=== PATIENT | male | born 1940 | race Caucasian/White ===

== ENCOUNTER 2020-07-19 12:22 | Emergency (ER) | payer OTHER ==
[2020-07-19] MEDS ORDERED: Acetaminophen/oxyCODONE 325-5 MG Tab ONE (12:38)
[2020-07-19] MEDS: Ketorolac 30 MG/ML SDV IM ONE (12:41)
[2020-07-19] MEDS: Ketorolac 30 MG/ML SDV ONE (12:43)
[2020-07-19 12:48] VITALS: BP 125/93; PULSE 84
--- NOTE | 2020-07-19 15:19 | ER ---
REASON FOR EMERGENCY ROOM VISIT: Left shoulder trauma. HISTORY: This 80-year-old man comes in after having sustained a fall to his left shoulder. This morning, while walking down a fairly steep driveway, he slipped on the ice and fell landing on his left shoulder. He subsequently experienced severe pain in the left shoulder with some modest amount of swelling in that area. He denies any numbness in his hand or tingling. He denies any trauma to any other areas. He did not strike his head or lose consciousness. PAST MEDICAL HISTORY: Reviewed, unremarkable. See EMR. MEDICATIONS: Reviewed. See EMR. PHYSICAL EXAMINATION: GENERAL: He is an alert man, sitting in a wheelchair. EXTREMITIES: His arm is flexed slightly at the elbow. He does have some visible swelling about the left shoulder area with tenderness to any of the attempts at passive range of motion. I cannot palpate any bony crepitus. Distally, his quitline counselor is strong. His neurovascular status is intact. He has no sensory deficits. An excellent capillary refill as well as a radial pulse. IMAGING: X-ray shows he has a displaced comminuted fracture of the anatomic neck of his left humerus. It is described as a comminuted fracture, possibly involving the head of the humerus as well. There is soft tissue swelling. No dislocation was identified. IMPRESSION: Proximal left humerus fracture (see above). PLAN: I contacted the orthopedic surgeon on-call at [facility] in [place], Dr. Mclean, described the injury as well as the x-ray findings. He indicated to me that we should place him in a sling and give him analgesics for over the weekend and arrange for him to be seen in clinic early next week. We are in the process of setting up that clinic visit now. At that time, they will assess whether or not surgery is indicated, and if so, what type of surgical intervention they would take. I discussed this with the patient and described Dr. Mclean's recommendation to him. He is reasonably comfortable, so long as he is moving his shoulder. He was placed in a left arm sling and given oxycodone 5/325, dispensed #10, as well as an additional prescription of the same, dispensed #10 one q.4 hours p.r.n. pain. He understands and agrees with this plan. JUAN R/MICHAELA /[id number]
--- NOTE | 2020-07-20 20:33 | CR ---
CLINICAL DATA: Fall. LEFT SHOULDER 19 JULY 2020: No priors. There is a mildly displaced, comminuted, oblique fracture through the neck of the humerus. There is also a questionable fracture through the greater tuberosity. No other fractures. 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 Job: [id number] [facility]
== END 2020-07-19 14:25 | disposition home or self-care (01) ==
LOC: LB.ED 12:22
DX: S42.292A Other displaced fracture of upper end of left humerus, initial encounter for closed fracture (principal); W00.0XXA Fall on same level due to ice and snow, initial encounter
CPT/HCPCS: 73030-LT; 96372; 99283; A9270-GY; J1885

== ENCOUNTER 2020-07-27 06:18 | Emergency (ER) | payer OTHER ==
[2020-07-27] MEDS ORDERED: Acetaminophen/HYDROcodone 325-5 MG Tab ONE (06:30)
[2020-07-27 07:16] VITALS: BP 124/69; PULSE 87
--- NOTE | 2020-07-27 07:49 | EDM.PDOC ---
ED HPI GENERAL MEDICAL PROBLEM - General Chief Complaint: Neuro Symptoms/Deficits Stated Complaint: AMS Time Seen by Provider: 07/27/20 07:15 Source of Information: Reports: Patient, Old Records - History of Present Illness INITIAL COMMENTS - FREE TEXT/NARRATIVE: 80 year old male presents to the ED with known left humerus fracture, after taking his shoulder immobilizer off in his sleep. He states he was having a nightmare woke up and remembers taking it off and being unaware of his surroundings for a few seconds. Significant bruising to left arm, was seen in [facility] and is not a surgical candidate, so a sling/shoulder immobilizer was placed. He has been having increased pain and not sleeping. 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(s) - Related Data Allergies Allergy/AdvReac Type Severity Reaction Status Date / Time No Known Allergies Allergy Verified 07/19/20 12:36 Home Meds: Home Meds ClonazePAM [KlonoPIN] 1 mg PO BEDTIME 10/10/14 [History] Gabapentin [Neurontin] 300 mg PO TID 10/10/14 [History] Omeprazole 20 mg PO BIDAC 07/07/15 [History] Sennosides [Senna] 17.2 mg PO TID 07/07/15 [History] Simethicone 80 mg PO BID 07/07/15 [History] Triamcinolone Acetonide [Triamcinolone Acetonide 0.1% Crm] 1 applic TOP BID 07/07/15 [History] Past Medical History HEENT History: Reports: Cataract Respiratory History: Reports: Sleep Apnea Other Respiratory History: tryed a cpap did not work clonazepam at for sleep Gastrointestinal History: Reports: GERD Other Musculoskeletal History: left arm - Past Surgical History GI Surgical History: Reports: Colonoscopy, Hernia, Inguinal Musculoskeletal Surgical History: Reports: Knee Replacement Social & Family History - Caffeine Use Caffeine Use: Reports: Coffee Review of Systems - Review of Systems Review Of Systems: See Below Constitutional: Reports: No Symptoms Eyes: Reports: No Symptoms Ears: Reports: No Symptoms Nose: Reports: No Symptoms Mouth/Throat: Reports: No Symptoms Respiratory: Reports: No Symptoms Cardiovascular: Reports: No Symptoms GI/Abdominal: Reports: No Symptoms Genitourinary: Reports: No Symptoms Musculoskeletal: Reports: Shoulder Pain, Arm Pain Skin: Reports: Bruising Neurological: Reports: No Symptoms ( states he was confused this morning upon waking, patient states he had a nightmare) Psychiatric: Reports: No Symptoms ED EXAM, GENERAL - Physical Exam Exam: See Below Exam Limited By: No Limitations General Appearance: Alert, Mild Distress Eye Exam: Bilateral Eye: Normal Inspection Ears: Normal External Exam, Normal Canal, Hearing Grossly Normal, Normal TMs Ear Exam: Bilateral Ear: TM normal Nose: Normal Inspection Throat/Mouth: Normal Inspection, Normal Lips, Normal Oropharynx, Normal Voice, No Airway Compromise Head: Atraumatic Neck: Normal Inspection, Full Range of Motion Respiratory/Chest: No Respiratory Distress, Lungs Clear, Normal Breath Sounds, No Accessory Muscle Use Cardiovascular: Normal Peripheral Pulses, Regular Rate, Rhythm, No Edema, No JVD, No Murmur Peripheral Pulses: 3+: Radial (L), Radial (R), Posterior Tibial (L), Posterior Tibial (R), Dorsalis Pedis (L), Dorsalis Pedis (R) GI/Abdominal: Normal Bowel Sounds, Soft, Non-Tender (Male) Exam: Deferred Rectal (Males) Exam: Deferred Back Exam: Normal Inspection, Full Range of Motion Extremities: No Pedal Edema, Normal Capillary Refill, Arm Pain Neurological: Alert, Oriented, CN II-XII Intact, Normal Cognition, No Motor/Sensory Deficits Psychiatric: Normal Affect, Normal Mood Skin Exam: Warm, Dry, Intact, Normal Color Lymphatic: No Adenopathy Course - Vital Signs Last Recorded V/S: Last Vital Signs Temp 97.0 F 07/27/20 07:14 Pulse 87 07/27/20 07:14 Resp 18 07/27/20 07:14 BP 124/69 07/27/20 07:14 Pulse Ox 99 07/27/20 07:14 Departure - Departure Time of Disposition: 08:00 Disposition: Home, Self-Care 01 Condition: Good Clinical Impression: Humeral fracture Qualifiers: Encounter type: subsequent encounter Humerus Location: shaft Fracture type: closed Fracture morphology: comminuted Fracture alignment: displaced Laterality: left Fracture healing: with delayed healing Qualified Code(s): S42.352G - Displaced comminuted fracture of shaft of humerus, left arm, subsequent encounter for fracture with delayed healing - Discharge Information *PRESCRIPTION DRUG MONITORING PROGRAM REVIEWED*: Not Applicable *COPY OF PRESCRIPTION DRUG MONITORING REPORT IN PATIENT SAM: Not Applicable Instructions: Humerus Fracture Treated With Immobilization Referrals: PCP,None [Primary Care Provider] - Additional Instructions: take the hydrocodone 1 tablet every 4-6 hours as needed for pain. Take stool softners when taking narcotic pain medications. Please return to ED for any increased or new concerning symptoms. Follow up with ortho as planned. Hold his clonazepam for sleep tonight. Sepsis Event Note (ED) - Evaluation Sepsis Screening Result: No Definite Risk - Focused Exam Vital Signs: Vital Signs Temp Pulse Resp BP Pulse Ox 07/27/20 07:14 97.0 F 87 18 124/69 99 - Assessment/Plan Plan: Discussed with patient about having a head CT, we decided that at this time with no confusion or neuro deficits not to have a head CT. He feels and I agree that his few seconds of confusion were due to medications, lack of sleep and pain. 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 Patient medicated for pain. He will follow up with ortho as planned next week. He was instructed to return to ED for any increased or new concerning symptpoms. He verbalized understanding. Patient will be sent home with #10 hydrocodone.
[2020-07-27] MEDS ORDERED: Acetaminophen/HYDROcodone 325-10 MG Tab PO ONE (08:01)
== END 2020-07-27 08:10 | disposition home or self-care (01) ==
LOC: LB.ED 06:18
DX: S42.352G Displaced comminuted fracture of shaft of humerus, left arm, subsequent encounter for fracture with delayed healing (principal); K21.9 Gastro-esophageal reflux disease without esophagitis; Z79.899 Other long term (current) drug therapy
CPT/HCPCS: 29105; 99282; 99283; A9270-GY

== ENCOUNTER 2020-07-30 09:15 | Emergency (ER) | payer OTHER ==
--- NOTE | 2020-07-30 09:56 | EDM.PDOC ---
ED HPI GENERAL MEDICAL PROBLEM - General Stated Complaint: ARM PAIN Time Seen by Provider: 07/30/20 09:25 Source of Information: Reports: Patient History Limitations: Reports: No Limitations - History of Present Illness INITIAL COMMENTS - FREE TEXT/NARRATIVE: Patient is a 80 y/o male who presents to have a saline lock removed from his right arm that has been there for the past 3 days (discharged from [facility]). He states it was bothering him. No redness and no fever. - Related Data Allergies Allergy/AdvReac Type Severity Reaction Status Date / Time No Known Allergies Allergy Verified 07/19/20 12:36 Home Meds: Home Meds ClonazePAM [KlonoPIN] 1 mg PO BEDTIME 10/10/14 [History] Gabapentin [Neurontin] 300 mg PO TID 10/10/14 [History] Omeprazole 20 mg PO BIDAC 07/07/15 [History] Sennosides [Senna] 17.2 mg PO TID 07/07/15 [History] Simethicone 80 mg PO BID 07/07/15 [History] Triamcinolone Acetonide [Triamcinolone Acetonide 0.1% Crm] 1 applic TOP BID 07/07/15 [History] Past Medical History HEENT History: Reports: Cataract Respiratory History: Reports: Sleep Apnea Other Respiratory History: tryed a cpap did not work clonazepam at hs for sleep Gastrointestinal History: Reports: GERD Other Musculoskeletal History: left arm - Past Surgical History GI Surgical History: Reports: Colonoscopy, Hernia, Inguinal Musculoskeletal Surgical History: Reports: Knee Replacement Social & Family History - Caffeine Use Caffeine Use: Reports: Coffee ED ROS GENERAL - Review of Systems Review Of Systems: See Below Constitutional: Reports: No Symptoms HEENT: Reports: No Symptoms Respiratory: Reports: No Symptoms Cardiovascular: Reports: No Symptoms Endocrine: Reports: No Symptoms GI/Abdominal: Reports: No Symptoms : Reports: No Symptoms Musculoskeletal: Reports: No Symptoms Skin: Reports: Other (saline lock in right arm) ED EXAM, SKIN/RASH Exam: See Below Text/Narrative:: Saline lock removed. No erythema; no induration; no fluctuance; and no drainage Exam Limited By: No Limitations General Appearance: Alert Respiratory/Chest: No Respiratory Distress Neurological: Alert, Oriented Skin: Warm, Dry, Intact, Normal Color, No Rash Departure - Departure Time of Disposition: 09:45 Disposition: Home, Self-Care 01 Condition: Good Clinical Impression: Foreign body (FB) in soft tissue - Discharge Information *PRESCRIPTION DRUG MONITORING PROGRAM REVIEWED*: No *COPY OF PRESCRIPTION DRUG MONITORING REPORT IN PATIENT SAM: No Referrals: PCP,None [Primary Care Provider] -
[2020-07-30 10:06] VITALS: BP 117/75; PULSE 79
== END 2020-07-30 09:55 | disposition home or self-care (01) ==
LOC: LB.ED 09:15
DX: S40.851A Superficial foreign body of right upper arm, initial encounter (principal); K21.9 Gastro-esophageal reflux disease without esophagitis; Z79.899 Other long term (current) drug therapy; W45.8XXA Other foreign body or object entering through skin, initial encounter
CPT/HCPCS: 99282; 99283

== ENCOUNTER 2020-11-18 13:52 | Emergency (ER) | payer OTHER ==
[2020-11-18 14:42] VITALS: BP 125/87; PULSE 79
--- NOTE | 2020-11-18 15:33 | CT ---
DATE OF SERVICE: 11/18/2020 CLINICAL DATA: Double vision Unenhanced brain CT: Mulitislice axial acquistion was performed. Comparison is made to a prior brain MRI dated March 2018. There is a persistent lateral, 3rd, and 4th ventriculomegaly, unchanged or slightly increased from the prior exam. There is a ventriculostomy catheter in place with its distal tip in the left lateral ventricle, unchanged. There is a craniotomy defect in the right posterior parietal and right occipital regions. 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 There is an oval-shaped lesion in the right occipital region. It is relatively isodense centrally and has a thick rim of hypodensity consistent with calcification. It is essentially unchanged from the prior MRI and is most likely secondary to the prior craniotomy. No masses. No intracranial hemorrhage. No evidence of acute or subacute infarct. No other significant findings. Impression: No acute abnormalities. MTDD
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
== END 2020-11-18 15:55 | disposition home or self-care (01) ==
LOC: LB.ED 13:52
DX: H53.2 Diplopia (principal); G62.9 Polyneuropathy, unspecified; Z91.81 History of falling; Z79.899 Other long term (current) drug therapy
CPT/HCPCS: 70450; 99283; 99285-25

== ENCOUNTER 2023-11-11 16:37 | Emergency (ER) | payer OTHER ==
[2023-11-11] MEDS: Sodium Phosphate,Monobasic/Sodium Phosphate,Dibasic Enema 133 ML Bottle RECTAL ONE (18:11)
[2023-11-11 20:27] VITALS: BP 140/65; PULSE 97
[2023-11-11] MEDS ORDERED: Magnesium Citrate Solution 296 ML Bottle ONE (21:00)
[2023-11-12] MEDS: Magnesium Citrate Solution 296 ML Bottle ONE (09:23)
== END 2023-11-11 20:15 | disposition home or self-care (01) ==
LOC: LB.ED 16:37
DX: K59.00 Constipation, unspecified (principal)
CPT/HCPCS: 74019; 99284; A9270

== ENCOUNTER 2024-01-13 13:04 | Emergency (ER) | payer OTHER ==
[2024-01-13] MEDS: Ketorolac 30 MG/ML SDV IM ONE (13:37)
[2024-01-13] MEDS: Ketorolac 60 MG/2 ML SDV IM ONE (13:38)
[2024-01-13 13:49] VITALS: BP 128/81; PULSE 79
[2024-01-13] MEDS: Orphenadrine 60 MG/2 ML Inj IM ONE (14:16)
== END 2024-01-13 16:00 | disposition home or self-care (01) ==
LOC: LB.ED 13:04
DX: M54.6 Pain in thoracic spine (principal); G89.29 Other chronic pain; Z86.19 Personal history of other infectious and parasitic diseases
CPT/HCPCS: 96372; 99283; 99283-25; J1885; J2360

== ENCOUNTER 2024-01-15 17:47 | Emergency (ER) | payer OTHER ==
[2024-01-15] MEDS ORDERED: Sodium Chloride 0.9% 10 ML Syringe FLUSH PRN (18:25)
[2024-01-15 18:41] LABS: HEMATOCRIT 40.1 % (40.0-54.0); HEMOGLOBIN 13.9 g/dL (13.0-18.0); MEAN CORPUSCULAR HEMOGLOBIN 32.3 pg (27.0-32.0); MEAN CORPUSCULAR HGB CONC 34.7 g/dL (31.0-35.0); MEAN PLATELET VOLUME 9.7 fL (6.0-10.0); RED BLOOD CELL COUNT 4.31 M/uL (4.50-6.50); RED CELL DISTRIBUTION WIDTH 13.9 % (11.0-16.0); WHITE BLOOD CELL COUNT,WBC 10.2 K/uL (4.0-11.0)
[2024-01-15 18:55] LABS: APPEARANCE,URINE CLEAR (CLEAR); BILIRUBIN,URINE NEGATIVE (NEGATIVE); COLOR,URINE YELLOW; GLUCOSE,URINE NEGATIVE (NEGATIVE); KETONES,URINE 15 mg/dL (NEGATIVE); LEUKOCYTE ESTERASE,URINE NEGATIVE (NEGATIVE); NITRITE,URINE NEGATIVE (NEGATIVE); OCCULT BLOOD,URINE TRACE-LYSED (NEGATIVE); PH,URINE 5.5 (5.0-8.0); PROTEIN,URINE NEGATIVE (NEGATIVE); UROBILINOGEN,URINE 0.2 E.U./dL (0.2-1.0)
[2024-01-15 18:58] LABS: RBC,URINE 0-5 /HPF; WBC,URINE NOT SEEN /HPF
[2024-01-15 19:00] LABS: A/G RATIO 1.1 (0.8-2.0); ALBUMIN 3.6 g/dL (3.4-5.0); ANION GAP 11.4 mmol/L (5.0-15.0); BILIRUBIN TOTAL 1.4 mg/dL (0.0-1.0); BUN/CREATININE RATIO 23.1 (6-25); CALCIUM 8.6 mg/dL (8.5-10.1); CARBON DIOXIDE,CO2 26.7 mmol/L (21.0-32.0); CREATININE 1.04 mg/dL (0.70-1.30); EST CRCL DRUG DOSING (CG) 63.67 mL/min; POTASSIUM,K 4.1 mmol/L (3.5-5.1); PROTEIN TOTAL,TP 6.9 g/dL (6.4-8.2)
[2024-01-15] MEDS: Magnesium Citrate Solution 296 ML Bottle PO ONE (20:12)
[2024-01-15] MEDS: Sodium Phosphate,Monobasic/Sodium Phosphate,Dibasic Enema 133 ML Bottle RECTAL ONE ×2 (20:50→22:05)
[2024-01-15 23:07] VITALS: BP 136/78; PULSE 71
== END 2024-01-15 22:50 | disposition home or self-care (01) ==
LOC: LB.ED 17:47
DX: K59.00 Constipation, unspecified (principal); Z86.19 Personal history of other infectious and parasitic diseases
CPT/HCPCS: 36415; 74176; 80053; 81001; 85027; 99283; 99284; A9270-GY

== ENCOUNTER 2025-06-10 13:07 | Emergency (ER) | payer OTHER ==
[2025-06-10 13:47] LABS: BASOPHILS ABSOLUTE AUTO 0.08 K/uL (0.02-0.10); BASOPHILS PERCENT AUTO 0.7 % (0.0-0.5); EOSINOPHILS ABSOLUTE AUTO 0.04 K/uL (0.04-0.40); EOSINOPHILS PERCENT AUTO 0.3 % (1.0-5.0); LYMPHOCYTES ABSOLUTE AUTO 1.10 K/uL (1.50-4.00); LYMPHOCYTES PERCENT AUTO 9.4 % (20.0-40.0); MEAN PLATELET VOLUME 9.5 fL (6.0-10.0); MONOCYTES ABSOLUTE AUTO 0.76 K/uL (0.20-0.80); MONOCYTES PERCENT AUTO 6.5 % (3.0-10.0); NEUTROPHILS ABSOLUTE AUTO 9.74 K/uL (2.00-7.50); NEUTROPHILS PERCENT AUTO 83.1 % (45.0-70.0); PLATELET COUNT,PLT 185 K/uL (150-400); RED BLOOD CELL COUNT 4.34 M/uL (4.50-6.50); RED CELL DISTRIBUTION WIDTH 14.1 % (11.0-16.0); WHITE BLOOD CELL COUNT,WBC 11.7 K/uL (4.0-11.0)
[2025-06-10 14:07] LABS: A/G RATIO 1.1 (0.8-2.0); ALANINE AMINOTRANSFERASE,ALT 25.0 U/L (12-78); ASPARTATE AMNIOTRANSFERASE,AST 18.0 U/L (15-37); BILIRUBIN TOTAL 1.8 mg/dL (0.0-1.0); BLOOD UREA NITROGEN,BUN 22.0 mg/dL (8-26); CARBON DIOXIDE,CO2 27.0 mmol/L (21.0-32.0); CHLORIDE,CL 107.0 mmol/L (98-107); CREATININE 1.18 mg/dL (0.70-1.30); EST CRCL DRUG DOSING (CG) 54.18 mL/min; ESTIMATED GFR 61.0 mL/min (>60); GLUCOSE RANDOM 107.0 mg/dL (74-100); POTASSIUM,K 5.0 mmol/L (3.5-5.1); PROTEIN TOTAL,TP 7.0 g/dL (6.4-8.2); SODIUM,NA 141.0 mmol/L (136-145)
[2025-06-10] MEDS: Ketorolac 30 MG/ML SDV IVPUSH ONE (14:57)
[2025-06-10] MEDS: Ondansetron 4 MG/2 ML SDV IVPUSH ONE (15:45)
[2025-06-10 17:33] VITALS: BP 113/72; PULSE 77
== END 2025-06-10 15:56 ==
LOC: MERGE 13:07 → LB.ED 13:07
DX: S72.142A Displaced intertrochanteric fracture of left femur, initial encounter for closed fracture (principal); W01.0XXA Fall on same level from slipping, tripping and stumbling without subsequent striking against object, initial encounter; Y92.010 Kitchen of single-family (private) house as the place of occurrence of the external cause
CPT/HCPCS: 36415; 73501; 80053; 85025; 96374; 96375; 99284; A0425; A0428; A0429; J1171; J1885; J2405